=== PATIENT | female | born 1980 | race Caucasian/White ===

== ENCOUNTER → 2020-09-03 10:15 | Outpatient (CLI) | payer OTHER, SELFPAY ==
[2020-09-03 12:11] LABS: Urine N gonorrhoeae NOT DETECTED
[2020-09-03 12:23] LABS: Urine Chlamydia NOT DETECTED
== END ==
PROVIDERS: Visit Provider Student in an Organized Health Care Education/Training Program
DX: N89.8 Other specified noninflammatory disorders of vagina (principal)
CPT/HCPCS: 87491; 87591

== ENCOUNTER → 2020-09-05 17:19 | Outpatient (CLI) | payer OTHER, SELFPAY ==
[2020-09-06 18:10] LABS: Hepatitis B Surface Antigen NEGATIVE s/c (NEGATIVE)
[2020-09-06 18:28] LABS: HIV 1 & 2 Ab/Ag 4th Gen Combo NEGATIVE (NEGATIVE); Hep C Virus Ab w/Reflex Quant NEGATIVE s/c (NEGATIVE)
== END ==
PROVIDERS: Referring Provider Student in an Organized Health Care Education/Training Program; Visit Provider Student in an Organized Health Care Education/Training Program
DX: Z11.3 Encounter for screening for infections with a predominantly sexual mode of transmission (principal)
CPT/HCPCS: 36415; 86803; 87340; 87389